=== PATIENT | male | born 1970 | race Caucasian/White ===

== ENCOUNTER 2021-04-15 09:26 | Inpatient (IN) ==
[2021-04-15 10:46] LABS: Hematocrit 42.9 % (37.5-50.1); Hemoglobin 13.7 g/dL (12.9-16.9); Immature Granulocytes % 0.3 % (0-4); Lymphocytes # 0.7 K/mcL (0.6-4.6); Lymphocytes % 22.6 %; Mean Corpuscular HGB Conc 31.9 g/dL (31.6-35.5); Mean Corpuscular Hemoglobin 26.6 pg (28.0-33.3); Mean Corpuscular Volume 83.1 fL (83.0-100.0); Mean Platelet Volume 9.8 fL (9.4-12.4); Monocytes # 0.1 K/mcL (0.0-1.3); Monocytes % 3.9 %; Platelet Count 177 K/mcL (140-400); Red Blood Count 5.16 M/mcL (4.19-5.50); Segmented Neutrophils % 73.2 %; White Blood Count 3.1 K/mcL (4.3-11.1)
[2021-04-15 10:55] LABS: INR 1.3; Prothrombin Time 14.2 Seconds (9.4-12.1)
[2021-04-15 10:58] LABS: Activated Partial Thrombo Time 34.3 Seconds (26.0-36.0)
[2021-04-15 11:06] LABS: Alanine Aminotransferase 30 Units/L (7-52); Albumin 3.5 g/dL (3.5-5.7); Alkaline Phosphatase 49 Units/L (34-104); Aspartate Amino Transferase 33 Units/L (13-39); BUN/Creatinine Ratio 13 (6-26); Bilirubin,Total 0.2 mg/dL (0.3-1.0); Blood Urea Nitrogen 16 mg/dL (6-20); Carbon Dioxide 25 mEq/L (23-29); Chloride 99 mEq/L (98-107); Globulin 3.5 g/dL (2.4-3.5); Glucose 143 mg/dL (70-105); Osmolality,Calculated 278 (280-300); Potassium 3.9 mEq/L (3.5-5.1); Sodium 132 mEq/L (136-145); eGFR For African Americans > 60 (> 60); eGFR For Non-African Americans > 60 (> 60)
[2021-04-15 11:15] LABS: Neutrophils # 2.3 K/mcL (1.6-8.9)
[2021-04-15] MEDS ORDERED: Melatonin 3 MG TABLET PO PRN (11:57)
[2021-04-15] MEDS ORDERED: MOM Conc 10 ML UD.LIQ PO PRN (11:57)
[2021-04-15] MEDS ORDERED: Naloxone 0.4 MG/ML INJ IVP PRN (11:57)
[2021-04-15] MEDS ORDERED: Mag Hydrox/Al Hydrox/Simeth 30 ML UDC PO PRN (12:00)
[2021-04-15] MEDS ORDERED: Ondansetron ODT 4 MG TAB.RAPDIS SL PRN (12:00)
[2021-04-15] MEDS ORDERED: Ondansetron 4 MG/2 ML VIAL IVP PRN (12:00)
[2021-04-15] MEDS ORDERED: D5% in Water 1,000 ML IVC PRN (12:05)
[2021-04-15] MEDS ORDERED: Dextrose Gel 15 GM/37.5 ML TUBE PO PRN ×2 (12:05)
[2021-04-15] MEDS ORDERED: *HR* Dextrose 50 % in Water (Vial) 50 ML VIAL IVP PRN (12:05)
[2021-04-15] MEDS ORDERED: Azithromycin 500 MG in 0.9 % Sodium Chloride 250 ML IVPB SCH (13:00)
[2021-04-15] MEDS ORDERED: levoFLOXacin 500 MG/100 ML 500 MG/100 ML BAG IVPB SCH (13:00)
[2021-04-15] MEDS ORDERED: Acetaminophen 325 MG TABLET PO PRN (14:43)
[2021-04-15] MEDS ORDERED: Ibuprofen 400 MG TABLET PO PRN (14:43)
[2021-04-15] MEDS: Gabapentin 400 MG CAPSULE PO SCH ×2 (15:00→21:09)
[2021-04-15] MEDS: Nitroglycerin 0.4 MG TAB.SUBL SL SCH (15:01)
[2021-04-15] MEDS: Ipratropium 1 PUFF INHALER IH SCH ×3 (16:30→23:43)
[2021-04-15] MEDS: Insulin LISPRO 300 UNITS/3 ML VIAL SUBQ SCH (17:00)
[2021-04-15] MEDS ORDERED: Insulin LISPRO 300 UNITS/3 ML VIAL SUBQ SCH (21:00)
[2021-04-16] MEDS: Ipratropium 1 PUFF INHALER IH SCH ×3 (03:59→12:01)
[2021-04-16 05:42] LABS: Hematocrit 44.6 % (37.5-50.1); Hemoglobin 14.2 g/dL (12.9-16.9); Mean Corpuscular HGB Conc 31.8 g/dL (31.6-35.5); Mean Corpuscular Hemoglobin 26.5 pg (28.0-33.3); Mean Corpuscular Volume 83.2 fL (83.0-100.0); Platelet Count 201 K/mcL (140-400); Red Blood Count 5.36 M/mcL (4.19-5.50); Red Cell Distribution Width 14.2 % (11.5-14.5); White Blood Count 3.9 K/mcL (4.3-11.1)
[2021-04-16] MEDS ORDERED: *HR* Enoxaparin 40 MG/0.4 ML SYRINGE SQ SCH (06:00)
[2021-04-16 06:03] LABS: Alanine Aminotransferase 29 Units/L (7-52); Albumin 3.7 g/dL (3.5-5.7); Alkaline Phosphatase 52 Units/L (34-104); Aspartate Amino Transferase 29 Units/L (13-39); BUN/Creatinine Ratio 17 (6-26); Bilirubin,Total 0.3 mg/dL (0.3-1.0); Blood Urea Nitrogen 20 mg/dL (6-20); Calcium 8.9 mg/dL (8.6-10.3); Carbon Dioxide 27 mEq/L (23-29); Chloride 99 mEq/L (98-107); Globulin 3.6 g/dL (2.4-3.5); Glucose 181 mg/dL (70-105); Magnesium 2.1 mg/dL (1.6-2.6); Osmolality,Calculated 283 (280-300); Phosphorous 3.3 mg/dL (2.7-4.5); Potassium 4.3 mEq/L (3.5-5.1); Sodium 133 mEq/L (136-145); Total Protein 7.3 g/dL (6.4-8.9); eGFR For African Americans > 60 (> 60); eGFR For Non-African Americans > 60 (> 60)
[2021-04-16 08:26] LABS: Ferritin 225 ng/mL (20-250)
[2021-04-16] MEDS: Insulin LISPRO 300 UNITS/3 ML VIAL SUBQ SCH ×2 (08:29→12:33)
[2021-04-16] MEDS: Gabapentin 400 MG CAPSULE PO SCH (08:31)
[2021-04-16] MEDS ORDERED: Aspirin 81 MG TAB.CHEW PO SCH (09:00)
[2021-04-16] MEDS ORDERED: SAXAGLIPTIN HCL 5 MG PO SCH (09:00)
[2021-04-16] MEDS ORDERED: Fenofibrate 54 MG TABLET PO SCH (09:00)
[2021-04-16] MEDS ORDERED: hydroCHLOROthiazide 25 MG TABLET PO SCH (09:00)
[2021-04-16 09:28] LABS: C-Reactive Protein 106 mg/L (Less than 10)
[2021-04-16 11:39] VITALS: BP 140/72; PULSE 84; TEMP 97.9
[2021-04-16 12:11] VITALS: RESP 20; O2SAT 94
[2021-04-16] MEDS: Nitroglycerin 0.4 MG TAB.SUBL SL SCH (12:33)
== END 2021-04-16 13:35 | disposition short-term general hospital (02) | DRG 177 ==
LOC: INPGRE 09:26 → EMEROOGRE 09:26 → INPGRE 12:17
PROVIDERS: ADMIT Family Medicine; ATTEND Family Medicine